=== PATIENT | female | born 1960 ===

== ENCOUNTER 2022-03-02 11:00 | Inpatient (IN) | payer OTHER ==
[~2022-03-02] VITALS: Ht 162.6 cm; Wt 55.3 kg
[2022-03-02] MEDS ORDERED: COZAAR50 MG PO (13:43)
[2022-03-05] MEDS ORDERED: FLUTICASONE-SA1 EAC4 (15:08)
[2022-03-05] MEDS ORDERED: CLONAZEPAM0.5 MG (15:08)
[2022-03-05] MEDS ORDERED: SERTRALINE HCL50 MG (15:08)
== END 2022-03-08 10:16 | disposition home or self-care (01) | DRG 331 ==
LOC: SURH 03-05 07:00 → O/R 03-05 08:19 → SURH 03-05 08:19
PROVIDERS: ADMIT Colon & Rectal Surgery; ATTEND Colon & Rectal Surgery
PROC: 0DBP4ZZ Excision of Rectum, Percutaneous Endoscopic Approach (ICD-10-PCS; 2022-03-05)
PROC: 0DJD8ZZ Inspection of Lower Intestinal Tract, Via Natural or Artificial Opening Endoscopic (ICD-10-PCS; 2022-03-05)
PROC: 4A1BXSH Monitoring of Gastrointestinal Vascular Perfusion using Indocyanine Green Dye, External Approach (ICD-10-PCS; 2022-03-05)
PROC: 0DTN4ZZ Resection of Sigmoid Colon, Percutaneous Endoscopic Approach (ICD-10-PCS; principal; 2022-03-05 10:30)
DX: K57.20 Diverticulitis of large intestine with perforation and abscess without bleeding (principal); D12.6 Benign neoplasm of colon, unspecified; R10.32 Left lower quadrant pain; Z20.822 Contact with and (suspected) exposure to COVID-19

== ENCOUNTER 2022-03-22 09:30 | Outpatient (CLI) | payer OTHER ==
[~2022-03-22 09:30] MED LIST: CLONAZEPAM0.5 MG; COZAAR50 MG PO; FLUTICASONE-SA1 EAC4; SERTRALINE HCL50 MG
== END 2022-03-22 09:34 | disposition home or self-care (01) ==
LOC: SONOGRAMA 09:30
PROVIDERS: ATTEND Pathology Anatomic Pathology & Clinical Pathology
DX: E04.2 Nontoxic multinodular goiter (principal)